=== PATIENT | female | born 1960 | race African-American/Black ===

== ENCOUNTER 2022-10-19 09:15 | Day surgery (SDC) | payer OTHER | END 2022-10-19 11:50 | disposition home or self-care (01) | LOC: FASU-ENDO 09:15 | PROVIDERS: ATTEND Internal Medicine Gastroenterology | PROC: 0DBK8ZX Excision of Ascending Colon, Via Natural or Artificial Opening Endoscopic, Diagnostic (ICD-10-PCS; principal; 2022-10-19 10:50) | DX: Z12.11 Encounter for screening for malignant neoplasm of colon (principal); D12.2 Benign neoplasm of ascending colon; K64.1 Second degree hemorrhoids; K57.30 Diverticulosis of large intestine without perforation or abscess without bleeding | CPT/HCPCS: 88305-TC ==